=== PATIENT | female | born 1995 | race Caucasian/White ===

== ENCOUNTER 2019-06-19 01:13 | Emergency (ER) | payer BC ==
[~2019-06-19] VITALS: Ht 170.2 cm; Wt 56.7 kg
--- NOTE | 2019-06-19 01:46 | NUR ---
IN APPLYING DERMABOND TO WOUND.
[2019-06-19 02:00] VITALS: BP 114/72
== END 2019-06-19 02:02 | disposition home or self-care (01) ==
LOC: FSED 01:13
DX: S61.411A Laceration without foreign body of right hand, initial encounter (principal); W26.0XXA Contact with knife, initial encounter; Y92.000 Kitchen of unspecified non-institutional (private) residence as the place of occurrence of the external cause
CPT/HCPCS: 99283